=== PATIENT | male | born 1960 | race Caucasian/White ===

== ENCOUNTER 2022-01-22 08:49 | Outpatient (CLI) | payer OTHER, SELFPAY ==
--- OUTSIDE RECORDS SUMMARY | 2022-01-18 09:22 | XMS_ITS | Continuity of Care Document ---
:1960 Author Care Team Providers Name Role Phone SEEN Primary Care Physician Unavailable MD Ann-Marie G Attending Physician Chief Complaint and Reason for Visit Chief Complaint 03/13/19, Left Total Hip, Mue [facility] Allergies, Adverse Reactions, Alerts No known allergies Social History Smoking Status Status Start Date End Date Date of Observat ion Never smoked tobacco December 10 12:28pm (finding) Observation Status Observation Response Date of Response History provided by Patient February 13, 2019 9:41 am Where do you live? Own home/apt February 13, 2019 9:41 am With whom do you live? Spouse February 13, 2019 9 :41am Specify additional service WORKING WITH THERAPY February 13 9:41am needs Additional Data Assigned Sex Male Problems Active Problems Medical Problem Onset Date Status Chronic low back pain Active History of vasectomy Resolved History of total hip arthroplasty March 13, 2019 [facility] ed Medications Medication Status Dose Units Route Directions Qty Days Start End Ins tructions Date Date Glucosamine-C Active 1 CAP PO Daily hondroitin (Joint Pain Formula) 1 Cap CAP Multiple Active 1 EA PO Daily Vitamin (Multi-Vitami n) TAB Acetaminophen Disconti 500-1 MG PO Every 6 Februaryobe (Acetaminophe nued 000 Hours as , r 2nd, n Extra needed 2018 2018 Stren) 500 Mg 1:04pm 11:06a TAB m Acetaminophen Disconti 1 TAB PO Every 4 February /Hydrocodone nued Hours as , , Bitart needed 2018 2018 (Hydrocodone- 9:02am 6:22am Acetaminophen ) 5 Mg/325 Mg TAB Amoxicillin & Disconti 1 TABLET PO Twice Daily July Pot nued For 10 Days , , Clavulanate 2016 2017 (Augmentin) 9:31am 9:15am 875 Mg/125 Mg TAB Amoxicillin/C Disconti 1 TAB PO Twice Daily November e lavulanate nued For 10 Days , , Potassium 2021 2021 (Amoxicillin 11:25am 9:26am & Pot Clavulanate) 875 Mg/125 Mg TAB Aspirin Disconti 325 MG PO Twice A Day 50 25 February Octobe nued , r , 2018 2018 1:04pm 11:06a m Azithromycin Disconti 500 MG PO Daily November nued , , 2021 2021 11:11am 9:26am Azithromycin Disconti 0 MG PO Daily July on e tablet daily x3 days for (Zithromax) nued , , travelle r's diarrhea 250 Mg TAB 2007 2008 10:18am 8:23am Betamethasone Disconti 1 EA EX Twice A Day 45 Decembe N ovemb Use for no /Clotrimazole nued r , er longe r than (Clotrimazole 2010, 2-3 we eks. /Betamethason 5:10pm 2011 e Cream) CRE 9:24am Cefdinir Disconti 300 MG PO Twice A Day September nued , er 2012, 3:38pm 2013 11:07a m Cefdinir Disconti 300 MG PO Twice A Day July nued , , 2012 2012 2:19pm 3:13pm Cefdinir Disconti 300 MG PO Twice A Day July nued , y 2012, 2:18pm 2012 2:19pm Diphtheria/Te Disconti 0.5 ML IM Once July tanus/Acell nued , y Pertussis 2007, (Adacel) 0.5 10:24am 2007 Ml INJ 10:50a m Guaifenesin/C Disconti 1-2 TSP PO Every 4 November odeine nued Hours as , , Phosphate needed 2021 2021 (Guaifenesin- 11:12am 9:26am Codeine) 100 Mg/10 Mg/5 Ml SOLN Guaifenesin/C Disconti 1-2 TSP PO Every 4 July PRN FOR COUGH odeine nued Hours as , 3rd, Phosphate needed 2016 2017 (Guaifenesin- 9:31am 9:15am Codeine) 100 Mg/10 Mg/5 Ml SOLN Hepatitis A Disconti 1 ML IM Once Julyuar Vaccine nued , y Inactivated 2007, (Havrix 10:18am 2007 Adult) 1,440 10:50a Unit INJ m Hepatitis B Disconti 1 ML IM Once January Recomb/Hep A nued , , Inact Vacc 2007 2007 (Twinrix) 1 8:51am 8:56am Ml INJ Hepatitis B Disconti 1 ML IM Once 1 uar Februa Vaccine nued y , ry (Engerix-B 2007, Sdv) 20 1:08pm 2007 Mcg/Ml INJ 10:40a m Hepatitis B Disconti 1 ML IM Once Julyuar Vaccine nued , y (Engerix-B 2007, Sdv) 20 10:24am 2007 Mcg/Ml INJ 11:23a m Hydrocodone-A Disconti 1-2 TAB PO Every 6 January [facility] cetaminophen nued Hours as 18, er ([place]) 5 needed 2017 6th, Mg/325 Mg TAB 12:30pm 2017 9:31am Ibuprofen Disconti 600-8 MG PO Every 6 February nued 00 Hours as , needed 2018 10:25a m Influenza Disconti 0.5 ML IM Once 1 [facility] Virus Vacc nued r 9th, er Triv Types 2010 03, A&B (Fluzone 11:28am 2009 Unit Dose 11:49a ) 0.5 m Ml INJ Influenza Disconti 0.5 ML IM Once 1 [facility] Virus Vaccine nued r 6th, er (Fluzone 2017 6th, Quadrivalent 9:08am 2017 (3 Yrs And 10:02a Older)2018-19 m ) 1 Inj INJ Influenza Disconti 0.5 ML IM Once 1 Novemb Virus Vaccine nued r 20th, er Types 2013, (Fluvirin 11:11am 2013 2013- (4 11:15a Yrs And Up, m Pf-Syringe)) 1 Inj INJ Lorazepam Disconti 0.5-1 MG PO Every 6 January nued Hours as 16, , needed 2017 2018 2:46pm 7:58am Magnesium Disconti 250 MG PO Daily January Oxide nued , (Magnesium) 2018 250 Mg TAB 1:13pm Methylprednis Disconti 1 TAB PO As Directed January y DIRECTED olone (Medrol nued , , ON PAC KAGE Dosepak) 4 Mg 2017 2017 CHANTAL 2:46pm 11:17a m Nabumetone Disconti 750 MG PO Twice A Day 60 October nued , , 2018 2018 9:58am 1:13pm Naproxen Disconti 220 MG PO Twice A Day Februa Sodium nued as needed ry (Aleve) 220 , Mg TAB 2019 8:38am Neomycin/Poly Disconti 3 DROP LEFT Tid X 7 January myxin/Hydroco nued EAR Days , 16, rtisone 2017 2017 (Cortisporin 9:36am 2:15pm Otic Susp) 1 Drop DROP Oxycodone Hcl Disconti 2.5-1 MG PO Every 4-6 Februaryo be minimize. nued 0 Hours as , r 2nd, wean off a nd needed 2018 2018 discontinue 8:24am 11:06a as soon as m possible Oxycodone/Christiano Disconti 1-2 TABLET PO Every 4 January taminophen nued Hours as , , needed 2017 2018 12:24pm 7:58am Prednisone Disconti 20 MG PO Twice A Day 05 February Decemb nued , er 2018 6th, 12:12pm 2017 9:05am Ranitidine Disconti 150 MG PO Twice A Day 60 Februa Hcl nued as needed ry 2019 8:38am Rivaroxaban Disconti 10 MG PO Daily 3 Februaryobe Teo e this medication for 3 days as directed, then aspirin (Xarelto) 10 nued , r 2nd, as dir ected for 25 days Mg TAB 2018 2018 1:04pm 11:06a m Sennosides Disconti 2 TAB PO Twice A Day Februaryob e (Senna) 8.6 nued as needed , r 2nd, Mg TAB 2018 2018 10:25am 11:06a m Sulfamethoxaz Disconti 1 TABLET PO Twice A Day 28 Decembe Novemb ole-Trimethop nued r , er rim (Bactrim 2010 16, Ds (800/160)) 5:02pm 2011 800 Mg/160 Mg 9:24am TAB Tamsulosin Disconti 0.4 MG PO Daily as 23 March Hcl nued needed 2018 8:29am Tamsulosin Disconti 0.4 MG PO Daily December Hcl (Flomax) nued , , 0.4 Mg CAP 2018 2018 8:51am 1:13pm Tizanidine Disconti 4 MG PO Every 8 February Hcl nued Hours as , , needed 2018 2018 9:07am 6:22am Tizanidine Disconti 2-4 MG OR Every 6 January Hcl nued Hours as , , needed 2017 2018 10:09am 8:29am Tizanidine Disconti 2-4 MG OR Every 6 January Hcl nued Hours as , , needed 2017 2017 1:40pm 10:09a m Tramadol Hcl Disconti 50-10 MG PO Every 6 December nued 0 Hours as , , needed 2018 2018 8:53am 9:02am Tramadol Hcl Disconti 50-10 MG PO Every 6 20 February Decemb nued 0 Hours as , er needed 2017 12, 2:46pm 2018 9:31am Typhoid Disconti 1 EA PO Every Other 4 July Vaccine nued Day , , (Vivotif 2007 2008 [place]) CAP 10:18am 8:23am Immunizations Immunization Event Date Not Given Dose Production Engineer Lot Vac cine Reason Number Number Informatio n Statement (VIS) Deta il COVID-19 July 25 Moderna 2020 COVID-19 August 26 Moderna 2020 COVID-19 May 27 Moderna 2020 Hepatitis A July 25 GlaxoSmithKline [id number] Adult 2007 B Hepatitis B July 25 Adult 2007 Hepatitis B February 2 Adult 2007 Hepatitis B February 15, Adult 2007 Influenza June 24 Sanofi Pasteur [id number] 2009 Influenza May 26 Novartis [id number] 2013 Influenza April 26 [id number] 2016 Influenza June 27 SANOFI [id number] 2017 Tetanus/Dipther April 24 ia 2016 Tdap July 25 (adolescent/maryellen 2007 lt) Tdap April 25 (adolescent/maryellen 2016 lt) Medical Equipment Device Date Implanted Device Details PINNACLE GRIPTION March 13, 2019 AQUILES: [id number] Issuing Agency: [facility] Device Id: [id number] Expiration Date: 03-27-31 Lot Number: [id number] PINNACLE ALTRX March 13, 2019 AQUILES: [id number] Issuing Agency: [facility] Device Id: [id number] Expiration Date: 10-27-30 Lot Number: [id number] APEX March 13, 2019 AQUILES: ()[id number] Issuing Agency: [facility] Device Id: [id number] Expiration Date: 03-28-30 Lot Number: [id number] BIOLOX DELTA March 13, 2019 AQUILES: ()[id number] Issuing Agency: [facility] Device Id: [id number] Expiration Date: 10-28-29 Lot Number: [id number] CORAIL March 13, 2019 AQUILES: ()[id number] Issuing Agency: [facility] Device Id: [id number] Expiration Date: 10-02-29 Lot Number: [id number] Procedures Procedure Date Performed Status Lab Add on Test January 07, 2022 completed C-REACTIVE PROTEIN January 01, 2022 completed ASSAY THYROID STIM HORMONE January 01, 2022 completed LIPID PANEL January 01, 2022 completed METABOLIC PANEL TOTAL CA January 01, 2022 completed Relevant Diagnostic Tests and/or Laboratory Data Laboratory Results Test Date/Time Result Interpretation Reference Result Perfo rming Site Range Comment Random January 01 60-115 [facility] Glucose 2021 [address] [facility] 10:20am [facility] [address] Blood Urea January 01 7-30 [facility] Nitrogen 2021 [address] [facility] 10:20am [place] [address] Creatinine January 01, 0.7 0.5-1.5 [facility] 2021 [address] [facility] 10:20am [place] [address] Estimated January 01, Patient [facility] Creatinine 2021 height/weigh [address] [facility] Clearance 10:20am [place] [address] available Sodium Level January 01, 137 135-149 [facility] 2021 [address] [facility] 10:20am [place] [address] Potassium January 01, 4.7 3.6-5.1 [facility] Level 2021 [address] [facility] 10:20am [facility] [address] Chloride January 01, 98 96-114 [facility] Level 2021 [address] [facility] 10:20am [facility] [address] Carbon January 01, 32 20-32 [facility] Dioxide Level 2021 [address] [facility] 10:20am [facility] [address] Calcium Level January 01, 9.6 8.4-10.6 [facility] 2021 [address] [facility] 10:20am [facility] [address] Cholesterol January 01, 171 90-199 [facility] Level 2021 [address] [facility] 10:20am [facility] [address] Triglycerides January 01, 62 40-149 [facility] Level 2021 [address] [facility] 10:20am [facility] [address] LDL January 01, 90 <100 [facility] Cholesterol 2021 [address] [facility] 10:20am [facility] [address] HDL January 01, 69 >=40 [facility] Cholesterol 2021 [address] [facility] 10:20am [facility] [address] Thyroid January 01, 3.290 0.270-4.20 Patients [facility] Stimulating 2021 0 taking a [address] [facility] Hormone (TSH) 10:20am high [place] [facility] [place] [address] (>5mg/day) of Biotin supplement (vitamin B7) will demonstrate a >10% negative bias for TSH testing. C-Reactive January 01, < 0.50 0.5-1.0 [facility] Protein 2021 [address] [facility] 10:20am [place] [address] Prostate January 01, 0.67 0.10-4.00 Patients [facility] Specific 2021 taking a [address] [facility] Antigen 10:20am high dose [facility] [address] Screen (>5mg/day) of Biotin supplement (vitamin B7) will demonstrate a >10% negative bias for this test. Erythrocyte January 01 0-15 [facility] [place] Sedimentation 2021 [address] 10:20am [facility] [address] Vital Signs Vital Reading Result Reference Range Collection Date/ Time Height 74 [in_i] January 01, 2022 9:30am Height 187.96 cm January 01, 2022 9:30am Weight 223 [lb_av] January 01, 2022 9:30am Weight 101.778745 kg January 01, 2022 9:30am BP Systolic 126 mm[Hg] January 01, 2022 9:30am BP Diastolic 76 mm[Hg] January 01, 2022 9:30am Heart Rate 70 /min January 01, 2022 9:30am Respiratory rate 15 /min January 01, 2022 9:30am Body surface area 2.28 m2 January 01 9:30am BMI (Body Mass Index) 28.6 kg/m2 January 01, 2022 9:30am Advance Directives Advance Directive Response Recorded Date/Time Has patient completed a Yes December 10, 2021 1 2:28pm Health Care Directive? Insurance Providers Guarantor Acosta Caballero Address [address] [facility] [address] Contact Info. Home Phone: Payer Policy Id Coverage Subscriber's Subscriber Effective Expira tion Id Name Id Date Date Preferred [id number] Sherrill Caballero July Encounters Encounter Location(s) Arrival/Admit Date Discharge/Depart Date Provider(s) Registered [place] January 01, 2022 [facility] 10:04am Elver Wolf MD Registered Clinics January 01, 2022 [facility] 9:30am Elver Wolf MD Office Visit Cardiology @ January 01, 2022 [facility] 9:30am Elver Wolf MD Clinic Recent Diagnosis Onset Date GONZALEZ (dyspnea on exertion) Cardiomyopathy Functional Status Observation Response Date Recorded Functional Status Independent March 15, 2019 1: 00pm Mental Status Observation Response Date Recorded Cognitive Status Alert March 15, 2019 1: 00pm Oriented March 15, 2019 1: 00pm Assessments Diagnosis Onset Date Resolution Status GONZALEZ (dyspnea on exertion) Cardiomyopathy Plan of Treatment Instructions from visit on: 01/01/22 Please follow the provider's instructions as discussed during your visit. Future Tests Future scheduled test information is unavailable Pending Tests Pending diagnostic test information is unavailable Future Visits Future appointment information is unavailable Referrals to Other Providers Referral information is unavailable Future Procedures Procedure Name Scheduled Date CARD Echo W/ CF Dop CARD Holter Monitor Future Medications Future medication information is unavailable Patient Instructions Acetaminophen (By mouth) Aspirin (By mouth) Laxative, Stool Softeners (By mouth) Oxycodone, Rapid Release (By mouth) Rivaroxaban (By mouth) Total Hip Replacement (DC) Goals Ambulatory Goals Reach or maintain optimal well being.
== END 2022-01-22 08:50 | disposition home or self-care (01) ==
LOC: RAD 08:51
PROVIDERS: PCP Internal Medicine; Visit Provider Internal Medicine Cardiovascular Disease
DX: I42.9 Cardiomyopathy, unspecified (principal); I34.1 Nonrheumatic mitral (valve) prolapse; I34.0 Nonrheumatic mitral (valve) insufficiency; I51.7 Cardiomegaly
CPT/HCPCS: 93306

== ENCOUNTER 2022-06-23 11:10 | Outpatient (CLI) | payer OTHER, SELFPAY ==
[2022-06-23 12:19] LABS: Chloride* 101 mmol/L (96-114); Sodium* 135 mmol/L (135-149)
[2022-06-23 12:20] LABS: Potassium* 4.5 mmol/L (3.6-5.1)
[2022-06-23 12:22] LABS: Creatinine* 0.8 mg/dL (0.5-1.5); Estimated Glomerular Filt Rate 102 ml/min
[2022-06-23 12:23] LABS: Blood Urea Nitrogen* 17 mg/dL (7-30); Calcium* 9.6 mg/dL (8.4-10.6); Carbon Dioxide* 30 mmol/L (20-32); Glucose* 87 mg/dL (60-115)
== END 2022-06-23 11:11 | disposition home or self-care (01) ==
LOC: NFLDREF 11:11
PROVIDERS: PCP Internal Medicine; Visit Provider Family Medicine
DX: E87.6 Hypokalemia (principal)
CPT/HCPCS: 80048

== ENCOUNTER 2023-01-18 08:23 | Outpatient (CLI) | payer OTHER, SELFPAY ==
--- OUTSIDE RECORDS SUMMARY | 2023-01-18 08:50 | XMS_ITS | Continuity of Care Document ---
Author Name Unknown Organization [facility] Address [address] [place] [address] Phone Care Team Providers Care Circus Artist Name Role Phone Misha José Unavailable Unavailable Allergies, Adverse Reactions, Alerts Substance Reaction Status Criticality No Known Allergies Active No Inform ation Medications Medication Instructions Dosage Effective Dates (start - stop) Status Comments meloxicam 15 mg tablet take 1 tablet by oral route every day 15 MG - Active TIZANIDINE HCL (unknown strength) Not Available - Active TRAMADOL HCL ER (unknown strength) Not Available - Active PERCOCET (unknown strength) Not Available - Active Procedures Procedure Date Office/Outpatient Visit,Est, Mod 2018 Office/Outpatient Visit,Est, Mod 2018 Office/Outpatient Visit,New, Mod 2017 Advance Directives Directive Yes / No Effective Date File Name No Information Encounters Encounter Description Practice Location Reason(s) For Visit Diagnoses Date Provider Providers Copied on Encounter [facility], [address], [place], [id number], [place] tel:[phone] No Information Paolo Cabral. [facility], [address], [place], [id number], [place]. tel:[phone] Office/Outpati ent Visit,Est, Mod [facility], [address], [place], [id number], [place] tel:[phone] [facility] Radiculopathy , lumbar region Paolo Cabral. [facility], [address] [place] [address] [address], [place], [place], [id number], . tel:[phone] Referring Provider: Dagoberto Rogers, [facility] [address] [place], [address]. tel:[phone] Office/Outpati ent Visit,Est, Mod [facility], [address], [place], [place], [id number], [place] tel:[phone] [facility] - [facility] Radiculopathy , lumbar region Paolo Cabral. [facility] [place], [address] [place] [address] [address], [place], [place], [id number], [place]. tel:[phone] Referring Provider: Dagoberto Rogers, [facility] [address] [place], [address]. tel:[phone] Office/Outpati ent Visit,New, Mod [facility], [address], [place], [place], [id number], [place] tel:[phone] [facility] - [facility] Rad[facility]opathy , lumbar region Paolo Cabral. [facility] [place], [address] [place] [address], [place], [place], [id number], . tel:[phone] Referring Provider: Dagoberto Rogers, [facility] [address] [place], [address]. tel:[phone] Family History Family Member Type Diagnosis Age At Onset No Information Payers Payer name Insurance type Covered alliance party ID Authorbrissaa lottie(s) Preferred One Admin [facility] CI [id number] Social History Type Description Quantity Date Captured Comments Sex Male Smoking Status No Information Chief Complaint And Reason For Visit No Information Reason For Referral Reason For Referral No Information Plan Of Treatment Date Type Action Status Future Order: Radiology Order Tr ansforaminal Ylkiirn-Bnjiaf-Movrfjiafoexwd (TRANSLUMNONPART), Ordered on: Ordered History Of Present Illness Encounter Date Complaint History Of Prese nt Illness No Information Functional Status Date Functional Assessmen t No Information Instructions Date Instruction Additional Infor mation No Information Assessments Type Assessment Date No Information Patient Care Teams Name Effective Dates (start - stop) Status Members No Information
== END 2023-01-18 08:24 | disposition home or self-care (01) ==
PROVIDERS: PCP Family Medicine; Visit Provider Family Medicine
DX: Z00.00 Encounter for general adult medical examination without abnormal findings (principal); R63.5 Abnormal weight gain; Z12.5 Encounter for screening for malignant neoplasm of prostate; R60.0 Localized edema
CPT/HCPCS: 80048; 84153; 84439; 84443

== ENCOUNTER 2023-03-04 08:52 | Outpatient (CLI) | payer OTHER, SELFPAY ==
--- OUTSIDE RECORDS SUMMARY | 2023-03-04 08:54 | XMS_ITS | Continuity of Care Document ---
Author Name Unknown Organization [facility] Address [address] [place] [address] Phone Care Team Providers Care Glazing Superintendent Name Role Phone Misha José Unavailable Unavailable [...] [facility], [address], [place], [id number], [place] tel:[phone] No Information Paolo Cabral. [facility], [address], [place], [id number], [place]. tel:[phone] Office/Outpati ent Visit,Est, Mod [facility], [address], [place], [id number], [place] tel:[phone] [facility] Radiculopathy , lumbar region Paolo Cabral. [facility], [address] [place] [address] [address], [place], [place], [id number], . tel:[phone] Referring Provider: Dagoberto Rogers, [facility] [address] [place], [address]. tel:[phone] Office/Outpati ent Visit,Est, Mod [facility], [address], [place], [place], [id number], [place] tel:[phone] [facility] - [facility] Rad[facility]opathy , lumbar region Paolo Cabral. [facility] [place], [address] [place] [address] [address], [place], [place], [id number], [place]. tel:[phone] Referring Provider: Dagoberto Rogers, [facility] [address] [place], [address]. tel:[phone] Office/Outpati ent Visit,New, Mod [facility], [address], [place], [place], [id number], [place] tel:[phone] [facility] - [facility] Radiculopathy , lumbar region Paolo Cabral. [facility] [place], [address] [place] [address], [place], [place], [id number], . tel:[phone] Referring Provider: Dagoberto Rogers, [facility] [address] [place], [address]. tel:[phone] Family History Family Member Type Diagnosis Age At Onset No Information Payers Payer name Insurance type Covered alliance party ID Authorbrissaa lottie(s) Preferred One Admin [facility] CI [id number] Social History Type Description Quantity Date Captured Comments Sex Male Smoking Status No Information Chief Complaint And Reason For Visit No Information Reason For Referral Reason For Referral No Information Plan Of Treatment Date Type Action Status Future Order: Radiology Order Tr ansforaminal Yodfgjv-Tiesow-Pthybqozywisak (TRANSLUMNONPART), Ordered on: Ordered History Of Present Illness Encounter Date Complaint History Of Prese nt Illness No Information Functional Status Date Functional Assessmen t No Information Instructions Date Instruction Additional Infor mation No Information Assessments Type Assessment Date No Information Patient Care Teams Name Effective Dates (start - stop) Status Members No Information
== END 2023-03-04 08:53 | disposition home or self-care (01) ==
PROVIDERS: PCP Family Medicine; Visit Provider Internal Medicine Cardiovascular Disease
DX: E03.9 Hypothyroidism, unspecified (principal); R60.0 Localized edema
CPT/HCPCS: 80048; 84443

== ENCOUNTER 2023-08-03 13:39 | Outpatient (CLI) | payer OTHER, SELFPAY ==
--- OUTSIDE RECORDS SUMMARY | 2023-08-03 13:44 | XMS_ITS | Clinical Summary ---
Author Name Unknown Organization [facility] Address [place], [place] [address] Care Team Providers Care Insights Manager Name Role Phone Manjula Parekh MD Primary Care Provider [phone] Allergies No known active allergies Medications Medication Sig Dispensed Refills Start Date End Date Status cetirizine (ZYRTEC) 10 mg tablet Take 1 Tablet (10 mg) by mouth once daily if needed. 0 02/17/2022 Active multivitamin (MVI) tablet Take 1 Tablet by mouth once daily. 0 02/17/2022 Active cholecalciferol (VITAMIN D3) 1,000 unit capsule Take 1 Capsule (1,000 units) by mouth once daily. 0 02/17/2022 Active glucosamine sulfate 500 mg tab Take 1 Tablet (500 mg) by mouth once daily. 0 02/17/2022 Active sildenafiL, pulm.hypertension, (REVATIO) 20 mg tablet Take 40-100 mg by mouth each time if needed (prior to sexual intercourse). 0 04/28/2022 Active aspirin chewable 81 mg chewable tablet Take 1 Tablet (81 mg) by mouth or nasogastric tube once daily. 0 06/16/2022 Active acetaminophen (TYLENOL EXTRA STRGTH) 500 mg tabletIndications: S/P mitral valve repair Take 2 Tablets (1,000 mg) by mouth every 6 hours if needed for Pain. Max acetaminophen dose: 4000mg in 24 hrs. 0 06/15/2022 Active sennosides-docusat e (SENOKOT S) (8.6-50 mg) tabletIndications: S/P mitral valve repair Take 2 Tablets by mouth once daily if needed for Constipation. 10 Tablet 0 06/15/2022 Active metoprolol succinate (Toprol XL) 50 mg sustained-release tabletIndications: HTN (hypertension),NSV T (nonsustained ventricular tachycardia) (HC),Mitral valve insufficiency, unspecified etiology Take 1 Tablet (50 mg) by mouth once daily. 90 Tablet 3 03/02/2023 Active levothyroxine (SYNTHROID) 50 mcg tablet Take 50 mcg by mouth once daily. 0 01/31/2023 Active furosemide (LASIX) 40 mg tabletIndications: S/P mitral valve repair Take 1 Tablet (40 mg) by mouth one time if needed (peripheral edema) for up to 1 dose. 30 Tablet 5 03/04/2023 Active potassium chloride (MICRO-K) 10 mEq Controlled-release capsuleIndications :S/P mitral valve repair Take 2 Capsules (20 mEq) by mouth one time if needed (when also taking lasix) for up to 1 dose. 60 Capsule 5 03/04/2023 Active Active Problems Problem Noted Date Diagnosed Date S/P mitral valve repair 06/10/2022 Overview: Mitral Valve. Medtronic SimPlus Flexible Annuloplasty Band. Medtronic. SIZE: 36mm. REF: [id number]. SN: [id number]. Implanted by Dr. Mehta and Dr. Pereira on 06/10/2022. Nonrheumatic mitral valve regurgitation 06/08/20 Mitral valve insufficiency 03/26/2022 Mitral valve prolapse 03/26/2022 Immunizations Name Administration Dates Next Due COVID-19 vaccine (Moderna 50 mcg/0.5mL) 12YO+ BIVALENT PF, MDV 04/17/2022 Influenza, IIV3 (Age 6-35 mos) 06/13/2014,2009 Influenza, IIV4 06/29/2018,05/09/2017 Pneumococcal Conj 20-valent (Prevnar 20) 022 Tdap 05/09/2017 Zoster (Shingrix-RZV, recombinant) 04/02/2022 Social History Tobacco Use Types Packs/Day Years Used Date Smoking Tobacco: Never Smokeless Tobacco: Never Alcohol Use Standard Drinks/Week Comments Yes 0 (1 standard drink = 0.6 oz pure alcohol) ocassionally 1-2 drinks a few days a week PHQ-2 Answer Date Recorded PHQ-2 TOTAL SCORE 0 08/04/2022 Social Connections Answer Date Recorded Frequency of Communication with Friends and Fami ly Not on file 01/01/2022 Sex and Gender Information Value Date Recorded Sex Assigned at Not on file Gender Identity Not on file Sexual Orientation Not on file Obstetrics History Last Filed Vital Signs Vital Sign Reading Time Taken Comments Blood Pressure 131/74 03/04/2023 8:55 AM CDT Pulse 76 03/04/2023 8:55 AM CDT Temperature 36.7 ??C (98 ??F) 06/15/2022 7:45 AM SOLUTIONS SALES CONSULTANT Respiratory Rate 14 03/04/2023 8:55 AM CDT Oxygen Saturation 98% 06/24/2022 9:00 AM SOLUTIONS SALES CONSULTANT Inhaled Oxygen Concentration - - Weight 105.2 kg (232 lb) 03/04/2023 8:55 AM CDT Height 188 cm (6' 2) 06/24/2022 9:00 AM SOLUTIONS SALES CONSULTANT Body Mass Index 29.79 06/24/2022 9:00 AM SOLUTIONS SALES CONSULTANT Plan of Treatment Upcoming Encounters Date Type Department Care Team (Late st Contact Info) Description 08/03/2023 2:00 PM SOLUTIONS SALES CONSULTANT Orders Only [facility] [address] [place] [address] Health Maintenance Due Date Last Done Comments HIV for age 15-65 1977 Hepatitis C screening for age 18-79 1980 Colonoscopy through age 75 12/16/2007 Lipids for age 45-75 12/16/2007 Zoster (shingles) series for age 50+ (2 of 2) 05/28/2022 04/02/2022 COVID-19 vaccine series ( season) 2023 04/17/2022, 05/29/2021, 09/01/2020, Additional history exists Influenza for age 50-64 03/25/2023 06/29/2018, 05/09 BMI (ht and wt on same day) for age 18+ 03/26/2023 03/26/2022 Depression screening for age 12+ 07/26/2023 07/26/2022, 06/25/2022, 06/23/2022 Tetanus booster 05/09/2027 05/09/2017 Tdap Completed 05/09/2017 Pneumococcal series for age 6-64 Aged Out 05/05/2022 No longer eligible based on patient's age to complete this topic Medical Devices Implanted Type Area Quality Lab Technician Device Identifier Shelf Expiration Date Model / Serial / Lot Band Mitral 34mm Simuplus - [id number] Implanted:Qty: 1 on 06/07/2022 by Melissa Pereira MD at [facility] N/A: Mitral Valve Medtronic Cardiac Surgery 02/25/2025 [id number] / [id number] / [id number] Band Mitral 36mm Simuplus - [id number] Implanted:Qty: 1 on 06/10/2022 by Dejan Mehta MBBS at [facility] N/A: Mitral Valve Medtronic Cardiac Surgery 02/24/2026 [id number] / [id number] / Advance Directives Latest Code Status on File Code Status Date Activated Date Inactivated Comments Full Code 06/08/2022 6:02 AM 06/15/2022 3:40 PM Question Answer Comments Code Status Discussion: Reviewed Preferences Code Status History Code Status Date Activated Date Inactivated Comments Full Code 06/07/2022 11:30 AM 06/08/2022 6:02 AM Question Answer Comments Code Status Discussion: Unable to Assess Preferences, Provider to review later Full Code 03/17/2022 9:04 AM 03/18/2022 2:08 AM Question Answer Comments Code Status Discussion: Reviewed Preferences Care Teams Insights Manager Relationship Specialty Start Date End Date Manjula Parekh MD [address] [place] [id number] PCP - General Internal Medicine 01/08/22
--- OUTSIDE RECORDS SUMMARY | 2023-08-03 13:44 | XMS_ITS | Continuity of Care Document ---
Author Name Unknown Organization [facility] Address [address] [place] [address] Phone Care Team Providers Care Monologist Name Role Phone Misha José Unavailable Unavailable [...] [facility], [address], [place], [id number], [place] tel:[phone] No Information Paolo Cabral. [facility], [address], [place], [id number], [place]. tel:[phone] Office/Outpati ent Visit,Est, Mod [facility], [address], [place], [id number], [place] tel:[phone] [facility] Radicul[facility] , lumbar region Paolo Cabral. [facility], [address] [place] [address] [address], [place], [place], [id number], [place]. tel:[phone] Referring Provider: Dagoberto Rogers, [facility] [address] [place], [address]. tel:[phone] Office/Outpati ent Visit,Est, Mod [facility], [address], [place], [place], [id number], [place] tel:[phone] [facility] - [facility] , lumbar region Paolo Cabral. [facility], [address] [place] [address] [address], [place], [place], [id number], [place]. tel:[phone] Referring Provider: Dagoberto Rogers, [facility] [address] [place], [address]. tel:[phone] Office/Outpati ent Visit,New, Mod [facility], [address], [place], [place], [id number], [place] tel:[phone] [facility] - [facility] , lumbar region Paolo Cabral. [facility], [address] [place] [address], [place], [place], [id number], . tel:[phone] Referring Provider: Dagoberto Rogers, [facility] [address] [place], [address]. tel:[phone] Family History Family Member Type Diagnosis Age At Onset No Information Payers Payer name Insurance type Covered alliance party ID Authoriza tion(s) No Information Social History Type Description Quantity Date Captured Comments Sex Male Smoking Status No Information Chief Complaint And Reason For Visit No Information Reason For Referral Reason For Referral No Information Plan Of Treatment Date Type Action Status Future Order: Radiology Order Tr ansforaminal Qciumnf-Lboqbn-Vtegqelqiixfrp (TRANSLUMNONPART), Ordered on: Ordered History Of Present Illness Encounter Date Complaint History Of Prese nt Illness No Information Functional Status Date Functional Assessmen t No Information Instructions Date Instruction Additional Infor mation No Information Assessments Type Assessment Date No Information Patient Care Teams Name Effective Dates (start - stop) Status Members No Information
== END 2023-08-03 13:40 | disposition home or self-care (01) ==
LOC: RAD 13:41
PROVIDERS: PCP Family Medicine; Visit Provider Internal Medicine Cardiovascular Disease
DX: Z95.2 Presence of prosthetic heart valve (principal); I34.0 Nonrheumatic mitral (valve) insufficiency; Z98.890 Other specified postprocedural states
CPT/HCPCS: 93306

== ENCOUNTER 2024-03-29 07:48 | Outpatient (CLI) | payer OTHER, SELFPAY ==
--- OUTSIDE RECORDS SUMMARY | 2024-03-29 07:52 | XMS_ITS | Clinical Summary ---
Author Organization [facility] Address [place], [place] [address] Care Team Providers Care K 9 Police Officer Name Role Phone Manjula Parekh MD Primary Care Provider [phone] Allergies No known active allergies Medications Medication Sig Dispensed Refills Start Date End Date Status cetirizine (ZYRTEC) 10 mg tablet Take 1 Tablet (10 mg) by mouth once daily if needed. 0 02/17/2022 Active multivitamin (MVI) tablet Take 1 Tablet by mouth once daily. 0 02/17/2022 Active cholecalciferol (VITAMIN D3) 1,000 unit capsule Take 1 Capsule (1,000 units) by mouth once daily. 02/17/2022 Active glucosamine sulfate 500 mg tab Take 1 Tablet (500 mg) by mouth once daily. 0 02/17/2022 Active sildenafiL, pulm.hypertensio n, (REVATIO) 20 mg tablet Take 40-100 mg by mouth each time if needed (prior to sexual intercourse). 04/28/2022 Active aspirin chewable 81 mg chewable tablet Take 1 Tablet (81 mg) by mouth or nasogastric tube once daily. 0 06/16/2022 Active acetaminophen (TYLENOL EXTRA STRGTH) 500 mg tabletIndication s:S/P mitral valve repair Take 2 Tablets (1,000 mg) by mouth every 6 hours if needed for Pain. Max acetaminophen dose: 4000mg in 24 hrs. 0 06/15/2022 Active sennosides-docus ate (SENOKOT S) (8.6-50 mg) tabletIndication s:S/P mitral valve repair Take 2 Tablets by mouth once daily if needed for Constipation. 10 Tablet 06/15/2022 Active metoprolol succinate (Toprol XL) 50 mg sustained-releas e tabletIndication s:HTN (hypertension),N SVT (nonsustained ventricular tachycardia) (HC),Mitral valve insufficiency, unspecified etiology Take 1 Tablet (50 mg) by mouth once daily. 90 Tablet 3 03/02/2023 Active levothyroxine (SYNTHROID) 50 mcg tablet Take 50 mcg by mouth once daily. 01/31/2023 Active potassium chloride (MICRO-K) 10 mEq Controlled-relea se capsuleIndicatio ns:S/P mitral valve repair Take 2 Capsules (20 mEq) by mouth one time if needed (when also taking lasix) for up to 1 dose. 60 Capsule 5 03/04/2023 Active furosemide (LASIX) 40 mg tabletIndication s:S/P mitral valve repair Take 1 Tablet (40 mg) by mouth one time if needed (peripheral edema). 30 Tablet 1 03/06/2024 Active furosemide (LASIX) 40 mg tabletIndication s:S/P mitral valve repair Take 1 Tablet (40 mg) by mouth one time if needed (peripheral edema) for up to 1 dose. 30 Tablet 5 03/04/2023 4 Discontinue d(Reorder (E-cancel not sent)) Active Problems Problem Noted Date Diagnosed Date S/P mitral valve repair 06/10/2022 Overview: Mitral Valve. Medtronic SimPlus Flexible Annuloplasty Band. Medtronic. SIZE: 36mm. REF: [id number]. SN: [id number]. Implanted by Dr. Mehta and Dr. Pereira on 06/10/2022. Nonrheumatic mitral valve regurgitation 06/08/20 Mitral valve insufficiency 03/26/2022 Mitral valve prolapse 03/26/2022 Encounters Date Type Department Care Team Description 03/06/[address] Ambrose [address] [place] [id number] Julius Guevara MD Refill Request from Last 3 Months Immunizations Name Administration Dates Next Due COVID-19 vaccine (Moderna 50 mcg/0.5mL) 12YO+ BIVALENT SAIMA ALMANZA 04/17/2022 Influenza, IIV3 (Age 6-35 mos) 06/13/2014,2009 [...] 36.7 ??C (98 ??F) 06/15/2022 7:45 AM NAVY DIVER Respiratory Rate 14 03/04/2023 8:55 AM CDT Oxygen Saturation 98% 06/24/2022 9:00 AM NAVY DIVER Inhaled Oxygen Concentration - - Weight 105.2 kg (232 lb) 03/04/2023 8:55 AM CDT Height 188 cm (6' 2) 06/24/2022 9:00 AM NAVY DIVER Body Mass Index 29.79 06/24/2022 9:00 AM NAVY DIVER Plan of Treatment Health Maintenance Due Date Last Done Comments HIV for age 15-65 1977 Hepatitis C screening for age 18-79 1980 Colonoscopy through age 75 12/16/2007 Lipids for age 45-75 12/16/2007 Zoster (shingles) series for age 50+ (2 of 2) 05/28/2022 04/02/2022 BMI (ht and wt on same day) for age 18+ 03/26/2023 03/26/2022 Depression screening for age 12+ 07/26/2023 07/26/2022, 06/25/2022, 06/23/2022 COVID-19 vaccine series ( season) 2024 04/17/2022, 05/29/2021, 09/01/2020, Additional history exists Influenza for age 50-64 03/25/2024 06/29/2018, 05/09 Tetanus booster 05/09/2027 05/09/2017 Tdap Completed 05/09/2017 Pneumococcal series for age 6-64 Aged Out 05/05/2022 No longer eligible based on patient's age to complete this topic Medical Devices Implanted Type Area Claim Professional Device Identifier Shelf Expiration Date Model / Serial / Lot Band Mitral 34mm Simuplus - [id number] Implanted:Qty: 1 on 06/07/2022 by Melissa Pereira MD at [facility] N/A: Mitral Valve Medtronic Cardiac Surgery 02/25/2025 [id number] / [id number] / [id number] Band Mitral 36mm Simuplus - [id number] Implanted:Qty: 1 on 06/10/2022 by Dejan Mehta MBBS at [facility] N/A: Mitral Valve Medtronic Cardiac Surgery 02/24/2026 [id number] / [id number] / Advance Directives * Full Code (Latest Code Status on File) Date Activated Date Inactivated Comments 06/08/2022 6:02 AM 06/15/2022 3:40 PM Question Answer Comments Code Status Discussion: Reviewed Preferences * Full Code Date Activated Date Inactivated Comments 06/07/2022 11:30 AM 06/08/2022 6:02 AM Question Answer Comments Code Status Discussion: Unable to Assess Preferences, Provider to review later * Full Code Date Activated Date Inactivated Comments 03/17/2022 9:04 AM 03/18/2022 2:08 AM Question Answer Comments Code Status Discussion: Reviewed Preferences Care Teams K 9 Police Officer Relationship Specialty Start Date End Date Manjula Parekh MD [address] [place] [address] PCP - General Internal Medicine 01/08/22
--- OUTSIDE RECORDS SUMMARY | 2024-03-29 07:52 | XMS_ITS | Continuity of Care Document ---
Author Organization [facility] Address [address] [place] [address] Phone Care Team Providers Care Director Consumer Name Role Phone Misha José Unavailable Unavailable [...] [facility], [address], [place], [id number], [place] tel:[phone] No Information Paolo Cabral. [facility], [address], [place], [id number], [place]. tel:[phone] Office/Outpat ient Visit,Est, [facility], [address], [place], [id number], [place] tel:[phone] [facility] , lumbar region Paolo Cabral. [facility], [address] [place] [address] [address], [place], [place], [id number], [place]. tel:[phone] Referring Provider: Dagoberto Rogers, [address], [facility]. tel:[phone] Office/Outpat ient Visit,Est, Mod [facility], [address], [facility] [place], [place], [id number], [place] tel:[phone] [facility] - [facility] Rad[facility] , lumbar region Paolo Cabral. [facility], [address] [place] [address], [place], [place], [id number], [place]. tel:[phone] Referring Provider: Dagoberto Rogers, [address], [facility]. tel:[phone] Office/Outpat ient Visit,New, [facility], [address], [facility] [place], [place], [id number], [place] tel:[phone] [facility] - [facility] Rad[facility] , lumbar region Paolo Cabral. [facility], [address] [place] [address], [place], [place], [id number], [place]. tel:[phone] Referring Provider: Dagoberto Rogers, [address], [facility]. tel:[phone] Family History Family Member Type Diagnosis Age At Onset No Information Payers Payer name Insurance type Covered constitution party ID Authoriza tion(s) No Information Social History Type Description Quantity Date Captured Comments Sex Male Smoking Status No Information Chief Complaint And Reason For Visit No Information Reason For Referral Reason For Referral No Information Plan Of Treatment Date Type Action Status Future Order: Radiology Order Tr ansforaminal Mivnsbd-Prthfj-Dbsfqehqxltzxh (TRANSLUMNONPART), Ordered on: Ordered History Of Present Illness Encounter Date Complaint History Of Prese nt Illness No Information Functional Status Date Functional Assessmen t No Information Instructions Date Instruction Additional Infor mation No Information Assessments Type Assessment Date No Information Patient Care Teams Name Effective Dates (start - stop) Status Members No Information
== END 2024-03-29 07:49 | disposition home or self-care (01) ==
PROVIDERS: PCP Family Medicine; Visit Provider Family Medicine
DX: R60.0 Localized edema (principal); E03.9 Hypothyroidism, unspecified; Z12.5 Encounter for screening for malignant neoplasm of prostate; Z13.220 Encounter for screening for lipoid disorders
CPT/HCPCS: 80053; 80061; 84443; G0103

== ENCOUNTER 2024-11-02 08:51 | Outpatient (CLI) | payer OTHER, SELFPAY | END 2024-11-02 08:52 | disposition home or self-care (01) | LOC: RAD 08:54 | PROVIDERS: PCP Family Medicine; Visit Provider Internal Medicine Cardiovascular Disease | DX: Z98.890 Other specified postprocedural states (principal); I51.7 Cardiomegaly; I34.0 Nonrheumatic mitral (valve) insufficiency; I07.1 Rheumatic tricuspid insufficiency | CPT/HCPCS: 93306 ==

== ENCOUNTER 2024-12-04 08:38 | Outpatient (CLI) | payer OTHER, SELFPAY ==
--- NOTE | 2024-12-11 12:24 | W.PM.SLEEP ---
Sleep Study Details Details Interpreting Provider: Eran Date of Sleep Study: 12/04/24 Sleep Study Details: STUDY TYPE:? Home unattended ? BMI:? 29.5 ORDERING PROVIDER:? Eran INDICATION:? Concerns about sleep apnea ? SLEEP SUMMARY:? 4 in 55 minutes monitor RESPIRATORY SUMMARY:? AHI 26.5 Low oxygen 83 4.4% of study oxygen less than 90% Snoring 56% PERIODIC LIMB MOVEMENTS OF SLEEP:? Not recorded CARDIAC:? Range 56-89, mean 73.5 beats per minute IMPRESSION:? Moderate obstructive sleep apnea with significant desaturation RECOMMENDATION: Treatment options include CPAP or dental appliance.
== END 2024-12-04 08:39 | disposition home or self-care (01) ==
LOC: SLEEP 08:39
PROVIDERS: PCP Family Medicine; Visit Provider Otolaryngology
DX: G47.33 Obstructive sleep apnea (adult) (pediatric) (principal)
CPT/HCPCS: 95806

== ENCOUNTER 2025-02-13 09:05 | Outpatient (CLI) | payer OTHER, SELFPAY ==
--- NOTE | 2025-02-13 09:15 | MR_ITS ---
EXAM: MRI of the RIGHT HIP, without contrast CLINICAL HISTORY: Right hip pain COMPARISONS: Radiographs dated 11/07/2024 TECHNICAL: MR sequences of the right hip: Axials: PD FS Axial oblique: PD Coronals: PD, T2 Coronal pelvis: T1 and STIR Sagittals: PD and T2 CONTRAST: None FINDINGS: Pelvis osseous structures: Sacrum: No fracture or destructive osseous lesion is seen of the imaged portions of the sacrum. Sacroiliac joints: No convincing evidence of sacroiliitis of the imaged portions of the sacroiliac joints. Pubic rami: Unremarkable. Symphysis pubis: There is no evidence of acute osteitis pubis. Lumbar spine: Multilevel degenerative disc disease is noted of the lower lumbar spine which is incompletely evaluated on this examination. This could be further evaluated with dedicated MRI, if clinically indicated. Large [id number] images demonstrate left total hip arthroplasty with surrounding susceptibility artifact. Labrum: Heterogeneous signal is noted throughout the anterosuperior and posterior superior quadrant of the labrum. Findings are most consistent with degenerative type tearing of the labrum. The labrum is suboptimally evaluated on a nonarthrographic examination. Hip joint: Physiologic amount of joint fluid. Diffuse articular cartilage thinning is noted throughout the right hip joint, compatible with grade I to II chondromalacia. The articular cartilage is suboptimally evaluated on a nonarthrographic examination. Proximal femur: Patchy bone marrow edema is noted throughout the right femoral head and extending into the right femoral neck. Within the area of edema, there is a curvilinear area of decreased signal as well as cortical step-off noted along the articular surface (coronal image 13, large [id number] coronal T1 image 16). Differential diagnosis would include fracture extending to the articular surface with mild impaction of the articular surface versus avascular necrosis with early articular surface collapse. Acetabulum: Mild bone marrow edema is noted along the margin of the acetabulum. No subcortical cysts. Ligamentum teres: Unremarkable. Myotendinous structures: Gluteus abductors: Heterogeneously increased signal is noted along the distal gluteus minimus, compatible with moderate tendinosis. No evidence of a discrete tear. Gluteus medius is intact and is unremarkable. Rectus abdominis-adductor longus aponeurosis, adductors, and rectus abdominis: Unremarkable. Hamstrings: Mild heterogeneity is noted of the right hamstrings, compatible with mild tendinosis. No evidence of a discrete tear. Flexors: The iliopsoas and rectus femoris tendons are intact. Quadratus femoris muscle: Unremarkable. Piriformis muscle: Unremarkable. Gluteal aponeurotic fascia and IT band: Unremarkable. Pelvic soft tissues: Unremarkable. IMPRESSION: 1. Patchy bone marrow edema throughout the right femoral head and extending into the right femoral neck. Within the area of edema, there is a curvilinear area of decreased signal and cortical step-off noted along the medial articular surface of the femoral head. Differential diagnosis would include fracture extending to the articular surface with mild impaction of the articular surface versus a focus of avascular necrosis with early articular surface collapse. 2. Mild to moderate right hip osteoarthrosis with diffuse articular cartilage thinning throughout the right hip joint as well as degenerative type tearing of the anterosuperior and posterior superior labrum. 3. Moderate tendinosis of the right gluteus minimus without evidence of tear. 4. Mild tendinosis of the right hamstrings without evidence of tear. 5. Multilevel degenerative disc disease is noted of the lower lumbar spine which is incompletely evaluated on this examination. This could be further evaluated with dedicated MRI, if clinically indicated. AW Electronically signed on 02/14/2025 9:45:[address] PAMELA ORTIZ M.D.
== END 2025-02-13 09:06 | disposition home or self-care (01) ==
LOC: MRI 09:05
PROVIDERS: PCP Family Medicine; Visit Provider Orthopaedic Surgery
DX: M25.551 Pain in right hip (principal); M51.369 Other intervertebral disc degeneration, lumbar region without mention of lumbar back pain or lower extremity pain; M16.11 Unilateral primary osteoarthritis, right hip; S43.431A Superior glenoid labrum lesion of right shoulder, initial encounter; M24.10 Other articular cartilage disorders, unspecified site
CPT/HCPCS: 73721

== ENCOUNTER 2025-03-21 08:20 | Outpatient (CLI) | payer OTHER, SELFPAY | END 2025-03-21 08:21 | disposition home or self-care (01) | LOC: NFLDREF 03-23 23:11 | PROVIDERS: PCP Family Medicine; Referring Provider Family Medicine; Visit Provider Family Medicine | DX: E03.9 Hypothyroidism, unspecified (principal); Z12.5 Encounter for screening for malignant neoplasm of prostate; Z13.6 Encounter for screening for cardiovascular disorders | CPT/HCPCS: 80053; 80061; 84443; G0103 ==

== ENCOUNTER 2025-04-02 08:11 | Day surgery (SDC) | payer OTHER, SELFPAY ==
[2025-04-02] VITALS (25 sets, daily range): BP systolic 120–155; BP diastolic 68–87; PULSE 52–77; RESP 12–20; TEMP 35.6–36.8; O2SAT 93–100; BMI 30.2
[2025-04-02] MEDS: SODIUM CHLORIDE 0.9 % (FLUSH) 10 ML SYRINGE IVF (09:10)
[2025-04-02] MEDS: LACTATED RINGERS 1000 ML 1,000 ML 100 ML IV ×2 (09:10→11:43)
[2025-04-02] MEDS: ACETAMINOPHEN 500 MG TABLET 1000 MG PO ×3 (09:20→22:14)
[2025-04-02] MEDS: OXYCODONE (CR) 10 MG TAB.ER.12H PO (09:21)
[2025-04-02] MEDS: CELECOXIB 200 MG CAPSULE PO (09:21)
[2025-04-02] MEDS: MIDAZOLAM HCL 1 MG/ML inj IVP (09:27)
--- NOTE | 2025-04-02 09:34 | SUR.PREOP ---
TIME?OUT:?924, right hip PT/RN/MDA?VERIFICATION?OF?SURGICAL?SITE,?PROCEDURE,?AND?CONSENT OBTAINED?PRIOR?TO?INVASIVE?PROCEDURE.
--- NOTE | 2025-04-02 10:02 | W.PM.NB ---
Nerve Block Nerve Block Time Seen by Provider: : Date Seen: 04/02/25 Side: right
--- NOTE | 2025-04-02 10:02 | W.PM.NB ---
Nerve Block Nerve Block Time Seen by Provider: : Date Seen: 04/02/25 Type of block requested by surgeon for post-operative analgesia: BARRY/LFCN Side: right Time out performed: Yes Verification of patient name: Yes Verification of date of : Yes Site marking: site marked Name of person performing procedure: Des Continuous monitoring Was continuous monitoring of O2 sat, B/P, monitoring tech, recorded every 15 minutes?: Yes Procedure Checklist: sterile prep, needles and gloves Ultrasound guided. Images saved: Yes Medications given in 5ml increments after negative aspiration: Ropivicaine %: 0.5 mL: 30 Needle gauge: 20 Precedex (mcg): 25 Patient tolerated procedure well: Yes Additional comments: Needle noted below psoas tendon needle noted adjacent to LFCN Block Charges Block Charge (with Pro Fee): Other Periph Nerve Block Use of Ultrasound Machine for Block: Yes- US Guidance/pain block
--- NOTE | 2025-04-02 10:03 | P.ANES_ITS ---
Anesthesia Charges Start Date/Time Anesthesia Start Date: 04/02/25 Anesthesia Start Time: 11:01 Stop Date/Time Anesthesia Stop Date: 04/02/25 Anesthesia Stop Time: 13:33 Coding CPT Codes CPT Codes: ANESTH HIP ARTHROPLASTY - 68782 ([id number]) P3 - PATIENT W/SEVERE SYS DISEASE, QK - ASSEMBLY HAND 2-4 CNCRNT ANES PROC, QX - SOCCER REFEREE SVC W/ MD MED DIRECTION
--- NOTE | 2025-04-02 10:03 | W.ANESCHARGE ---
Anesthesia Charges Start Date/Time Anesthesia Start Date: 04/02/25 Anesthesia Start Time: 11:01 Stop Date/Time Anesthesia Stop Date: 04/02/25 Anesthesia Stop Time: 13:33 Coding CPT Codes CPT Codes: ANESTH HIP ARTHROPLASTY - 84782 ([id number]) P3 - PATIENT W/SEVERE SYS DISEASE, QK - MESH WORKER 2-4 CNCRNT ANES PROC, QX - BIRD SITTER SVC W/ MD MED DIRECTION
--- NOTE | 2025-04-02 10:45 | CRLHL7_ITS ---
For Patients: As a result of the Cures Act, medical imaging exams and procedure reports are released immediately into your electronic medical record. You may view this report before your referring provider. If you have questions, please contact your health care provider. Indication: Hip replacement surgery Technique: AP hip fluoroscopic images. Fluoroscopy time 83.0 seconds. Findings/Impression: Hardware from a right total hip arthroplasty is in satisfactory position. Dictated by Julius Craig MD @ 04/02/2025 4:03:57 PM (Electronically Signed)
[2025-04-02] MEDS: TRANEXAMIC ACID 100 MG/ML INJ 1000 MG IV (11:12)
--- NOTE | 2025-04-02 12:46 | CRLHL7_ITS ---
For Patients: As a result of the Century Cures Act, medical imaging exams and procedure reports are released immediately into your electronic medical record. You may view this report before your referring provider. If you have questions, please contact your health care provider. Indication: Postop Technique: AP hip centered pelvis and lateral view right hip Findings/Impression: Hardware from a right total hip arthroplasty is in satisfactory position. Bone alignment is normal. No sign of acute fracture. Postop changes are within normal limits. Dictated by Julius Craig MD @ 04/02/2025 4:09:11 PM (Electronically Signed)
--- NOTE | 2025-04-02 12:49 | P.ORPRC_ITS ---
Procedure Note Date of procedure: 04/02/25 Procedure: PREOPERATIVE DIAGNOSIS: Right hip osteoarthritis POSTOPERATIVE DIAGNOSIS: Right hip osteoarthritis NAME OF OPERATION: Right total hip arthroplasty SURGEON: Daniel Herrera MD CNC OPERATOR: Geraldine Amador PA-C, DON Darden IMPLANTS: 1. J[employer]J [place] # 54 sector ingrowth cup 2. 36 x 54 +4 neutral polyethylene 3. Actis # 9 standard collared ingrowth stem 4. 36 -2 ceramic femoral head ANESTHESIA: General ESTIMATED BLOOD LOSS: 570 cc COMPLICATIONS: None SPECIMENS: None DRAINS: None PREOPERATIVE ANTIBIOTICS: Ancef 2 g INDICATIONS: The patient is a 64-year-old with a history of severe, unrelenting right hip pain secondary to right hip osteonecrosis. Despite appropriate nonoperative management, including activity modification, use of an assist device, anti-inflammatories, sxzp-jzv-rmkioam pain medication, physical therapy and injections, they continue to have pain and disability. Operative intervention was offered. The risks, benefits and expected outcomes were discussed in detail. These included but were not limited to: Infection, bleeding, injury to blood vessel or nerve, venous thromboembolism. All questions were answered to their satisfaction. Use of an sales assistant institutional sales was necessary throughout the case for patient positioning and safety, soft tissue retraction and closure. PROCEDURE: The patient was placed supine on the [place] table. General Anesthesia was administered. The sales assistant institutional sales made sure the patient was properly positioned. The right hip was prepped and draped in the usual sterile fashion. The image intensifier was brought in for a perfect AP pelvis and a perfect double tear drop AP view of each hip which were used for intraoperative templating with our fluoroscopic guide. A longitudinal incision was made 3 cm distal and 3 cm lateral to the anterior, superior iliac spine. The sales assistant institutional sales retracted the soft tissues to protect them. Subcutaneous dissection was taken with electrocautery to the superficial fascia. The fascia was divided in line with the incision. Blunt dissection was carried medially to the tensor fascia maninder and sartorius interval. Deep dissection was carried with electrocautery. The circumflex vessels were cauterized and divided. The capsule was exposed and then divided in a T- fashion, tagged with #1 FiberWire sutures. Retractors were placed in the joint, held by the sales assistant institutional sales. The corkscrew was placed in the femoral head. The neck cut was made in the subcapital region. We made a second neck cut more distal. The napkin ring of bone was removed. The femoral head was removed intact. Most of the articular cartilage over the femoral head was non adherent to the subchondral bone, consistent with his history of osteonecrosis. Acetabular retractors were placed, held by the sales assistant institutional sales. The labrum was sharply debrided. The capsule was released. The 43 mm reamer was used to the true medial wall. We then enlarged in 2 mm increments using the image intensifier for our reamer placement. We impacted the cup which had excellent purchase. We placed the polyethylene. Attention was then turned to the proximal femur. The limb was placed in 140 degrees of external rotation, maximum extension and adduction. The capsule was released to allow us to deliver the femur into the wound and complete the femoral side. Retractors were held by the sales assistant institutional sales throughout the femoral preparation. The boxing promoter and canal finder were used. Broaches were used to a stable size. The calcar reamer was used. Trial components were placed. The hip was reduced and was found to be stable with appropriate soft tissue tension. Length and offset had been nicely restored using the image intensifier and our fluoroscopic guide. Trial components were removed. The stem was impacted. We placed the femoral head. Again, the hip was reduced and was found to be stable with appropriate soft tissue tension. Length and offset had been nicely restored. The sales assistant institutional sales did a three minute dilute Betadine solution soak. The sales assistant institutional sales irrigated the wound with 3 liters of normal saline via pulse lavage. The sales assistant institutional sales repaired the anterior capsule with a #1 Vicryl and our previously placed Ethibond sutures. The sales assistant institutional sales closed the fascia over the tensor fascia maninder with a #1 PDO Stratafix, subcutaneous tissues with 2-0 Vicryl, skin with a running 3-0 Stratafix and glue. A dry dressing was applied by the sales assistant institutional sales. Sponge and needle counts were correct x 2. The patient tolerated the procedure well; there were no apparent complications. They were awakened and extubated in the operating room, sent to the Post-Anesthesia Care Unit in satisfactory condition. PLAN: 1. The patient will be mobilized with physical therapy, weight-bearing as tolerates 2. Xarelto x 5 days then aspirin x 30 days will be used for DVT prophylaxis 3. The patient will be discharged once medically appropriate
--- NOTE | 2025-04-02 13:39 | P.ANES_ITS ---
Anesthesia Charges Start Date/Time Anesthesia Start Date: 04/02/25 Anesthesia Start Time: 11:01 Stop Date/Time Anesthesia Stop Date: 04/02/25 Anesthesia Stop Time: 13:33 Coding CPT Codes CPT Codes: ANESTH HIP JOINT SURGERY - 91151 ([id number]) P3 - PATIENT W/SEVERE SYS DISEASE, QK - PARLIAMENTARY COUNSEL 2-4 CNCRNT ANES PROC, QX - SOLVENT STATION ATTENDANT SVC W/ MD MED DIRECTION
--- NOTE | 2025-04-02 13:39 | W.ANESCHARGE ---
Anesthesia Charges Start Date/Time Anesthesia Start Date: 04/02/25 Anesthesia Start Time: 11:01 Stop Date/Time Anesthesia Stop Date: 04/02/25 Anesthesia Stop Time: 13:33 Coding CPT Codes CPT Codes: ANESTH HIP JOINT SURGERY - 98557 ([id number]) P3 - PATIENT W/SEVERE SYS DISEASE, QK - MANAGER INVESTMENT 2-4 CNCRNT ANES PROC, QX - CUFFER SVC W/ MD MED DIRECTION
[2025-04-02] MEDS: LACTATED RINGERS 1000 ML 1,000 ML 75 ML IV (15:30)
--- NOTE | 2025-04-02 17:13 | PM.IMCN1 ---
Date of Consult Consult date: 04/02/25 Requesting Physician: Orthopedics Primary Care Provider: Gerardo Eng MD Consult Narrative Reason for consult: Medical management of comorbidities Narrative: Acosta Brownlee is a 64 year old male who presented to the hospital today for an elective right ROYER with Dr. Herrera of Orthopedic surgery. There were no surgical or anesthetic complications noted during procedure. Patient's H&P reviewed, PCP is Dr. Eng at [facility]. Past medical history significant for: essential HTN, hypothyroidism, osteoarthritis. History of blood clots: No Postoperative plan: Home with Review of Systems Status of ROS: Reports: 10 or more systems reviewed and unremarkable except as noted in History and below [facility] Medical History (Updated 04/02/25 @ 17:17 by Kiera Simpson MD) Chronic low back pain ?M54.50 - Low back pain, unspecified (ICD-10) ?G89.29 - Other chronic pain (ICD-10) Erectile dysfunction ?N52.9 - Male erectile dysfunction, unspecified (ICD-10) Greater trochanteric bursitis of left hip ?M70.62 - Trochanteric bursitis, left hip (ICD-10) Need for SBE (subacute bacterial endocarditis) prophylaxis ?Z29.89 - Encounter for other specified prophylactic measures (ICD-10) Cough in adult ?R05.9 - Cough, unspecified (ICD-10) Essential hypertension ?I10 - Essential (primary) hypertension (ICD-10) Acute bronchitis ?J20.9 - Acute bronchitis, unspecified (ICD-10) Sinusitis ?J32.9 - Chronic sinusitis, unspecified (ICD-10) Greater trochanteric bursitis of right hip ?M70.61 - Trochanteric bursitis, right hip (ICD-10) Hypothyroidism ?E03.9 - Hypothyroidism, unspecified (ICD-10) Surgical History (Updated 04/02/25 @ 17:16 by Kiera Simpson MD) History of total right hip replacement (04/02/25) ?Z96.641 - Presence of right artificial hip joint (ICD-10) History of mitral valve repair ?Z98.890 - Other specified postprocedural states (ICD-10) History of vasectomy ?Z98.52 - Vasectomy status (ICD-10) History of total hip replacement (03/13/19) ?Z96.649 - Presence of unspecified artificial hip joint (ICD-10) Social History (Reviewed 02/18/25 @ 13:53 by Loni Kennedy ~ [facility]) What is your current living situation?: I presently have a place to live Problems where you live: no known problems In the past 12 months, utilities in danger of being shut off: no In past 12 months, lack of transportation kept you from medical appts, meetings, work, or getting things needed for daily living: no In the past 12 mos, have been you worried that your food would run out before you had money to buy more?: never true In the past 12 mos, the food you bought just didn't last and you didn't have money to buy more?: never true Smoking Status: Never smoker Do you use any of these nicotine containing products: None Second hand tobacco smoke exposure: No Non-prescribed substance use: denies use How often does anyone, including family, friends and others, physically hurt you: never How often does anyone, including family, friends and others, insult or talk down to you: never How often does anyone, including family, friends and others, threaten you with harm: never How often does anyone, including family, friends and others, scream or curse at you: never Meds Home Medications and Allergies Home Medications ?Medication ?Instructions ?Recorded ?Confirmed ?Type aspirin 81 mg tablet,delayed 81 mg PO QDAY 06/23/22 04/02/25 History release (Adult Aspirin Regimen) Held on 04/02/25. Instructions: Resume on 05/03/25. multivitamin (Multiple Vitamins 1 tab PO QDAY 06/23/22 03/20/25 History tablet) cholecalciferol (vitamin D3) 50 50 mcg PO QDAY 03/04/23 04/02/25 History mcg (2,000 unit) capsule glucosamine HCl 500 mg tablet 500 mg PO QDAY 03/04/23 03/20/25 History sildenafil (pulm.hypertension) 20 40 - 100 mg (2 - 5 x 20 mg) PO 03/07/24 03/20/25 Rx mg tablet QDAY PRN sexual activity #30 tabs furosemide 40 mg tablet 40 mg PO QDAY PRN edema #30 tabs 03/29/24 04/02/25 Rx levothyroxine 50 mcg tablet 50 mcg PO QDAY #90 tabs 03/29/24 04/02/25 Rx (Synthroid) metoprolol succinate 50 mg 50 mg PO QDAY #90 tabs 03/29/24 04/02/25 Rx tablet,extended release 24 hr potassium chloride 20 mEq 20 meq PO QDAY PRN edema #30 tabs 03/29/24 04/02/25 Rx tablet,extended release(part/cryst) tizanidine 4 mg tablet 4 mg PO BID PRN muscle spasticity 03/29/24 04/02/25 Rx #50 tabs amoxicillin 500 mg capsule 2,000 mg (4 x 500 mg) PO ONCE #12 07/12/24 03/20/25 Rx caps tamsulosin 0.4 mg capsule 0.8 mg PO DAILY 03/19/25 04/02/25 History acetaminophen 500 mg capsule 500 - 1,000 mg (1 - 2 x 500 mg) PO 04/02/25 Rx Q6H PRN pain #100 caps aspirin 81 mg chewable tablet 81 mg PO BID for DVT prophylaxis 04/02/25 Rx (Aspirin Childrens) 30 days #60 tabs oxycodone 5 mg tablet 2.5 - 5 mg (0.5 - 1 x 5 mg) PO 04/02/25 Rx Q4-6H PRN Pain #42 tabs rivaroxaban 10 mg tablet (Xarelto) 10 mg PO DAILY DVT prophylaxis 4 04/02/25 Rx days #4 tabs sennosides 8.6 mg tablet (Senna 17.2 mg (2 x 8.6 mg) PO BID PRN 04/02/25 Rx Lax) constipation #100 tabs Allergies Allergy/AdvReac Type Severity Reaction Status Date / Time No Known Allergies Allergy Verified 03/20/25 08:11 Exam Narrative: Exam Narrative: GEN: Alert and oriented, nontoxic HEENT: EOMIs bilaterally, no scleral icterus CV: RRR, No concerning murmurs R: LCTA bilaterally without concerning wheezing Ext: wwp, no concerning edema Skin: No concerning skin lesions or rashes on exposed skin Neuro: Nonfocal Psych: Appropriate Const: Vital Signs, click to edit/add: Vital Signs - 24 hr 04/02/25 09:19 04/02/25 09:30 04/02/25 09:35 Temperature 97.8 F Pulse Rate 66 71 65 Pulse Rate [Right Pulse Oximeter] Respiratory Rate 20 20 20 Blood Pressure 125/79 132/78 132/76 Blood Pressure [Le ft Arm] Pulse Oximetry 94 96 97 Oxygen Delivery Me thod Room Air OxyMask OxyMask Oxygen Flow Rate 5 5 04/02/25 09:40 04/02/25 09:47 04/02/25 13:28 Temperature 97.2 F L Pulse Rate 54 L 52 L 71 Pulse Rate [Right Pulse Oximeter] Respiratory Rate 20 16 12 Blood Pressure 133/79 125/69 127/71 Blood Pressure [Le ft Arm] Pulse Oximetry 99 98 93 Oxygen Delivery Me thod OxyMask OxyMask Room Air OxyMask Oxygen Flow Rate 5 5 04/02/25 13:35 04/02/25 13:40 04/02/25 13:45 Temperature 97.3 F L Pulse Rate 71 68 67 Pulse Rate [Right Pulse Oximeter] Respiratory Rate 14 14 12 Blood Pressure 120/69 129/69 133/71 Blood Pressure [Le ft Arm] Pulse Oximetry 99 100 100 Oxygen Delivery Me thod OxyMask OxyMask OxyMask Oxygen Flow Rate 10 10 6 04/02/25 13:50 04/02/25 13:55 04/02/25 14:00 Temperature 97.3 F L Pulse Rate 69 68 69 Pulse Rate [Right Pulse Oximeter] Respiratory Rate 16 16 14 Blood Pressure 133/76 142/80 H 135/79 Blood Pressure [Le ft Arm] Pulse Oximetry 99 97 96 Oxygen Delivery Me thod Room Air Room Air Room Air Oxygen Flow Rate 04/02/25 14:06 04/02/25 14:10 04/02/25 14:25 Temperature 96.0 F L 96.1 F L 96.1 F L Pulse Rate Pulse Rate [Right Pulse Oximeter] 66 66 66 Respiratory Rate 16 16 16 Blood Pressure Blood Pressure [Le ft Arm] 144/86 H 146/83 H 144/82 H Pulse Oximetry 95 96 97 Oxygen Delivery Me thod Room Air Room Air Room Air Oxygen Flow Rate 04/02/25 14:40 04/02/25 14:55 04/02/25 15:00 Temperature 96.2 F L 96.3 F L Pulse Rate Pulse Rate [Right Pulse Oximeter] 62 65 Respiratory Rate 16 16 16 Blood Pressure Blood Pressure [Le ft Arm] 133/87 132/83 Pulse Oximetry 99 96 98 Oxygen Delivery Me thod Room Air Room Air Room Air Oxygen Flow Rate 04/02/25 15:00 04/02/25 16:00 04/02/25 17:00 Temperature 96.1 F L 96.5 F L Pulse Rate Pulse Rate [Right Pulse Oximeter] 55 L 60 Respiratory Rate 16 16 16 Blood Pressure Blood Pressure [Le ft Arm] 155/68 H 134/87 Pulse Oximetry 99 96 Oxygen Delivery Me thod Room Air Room Air Oxygen Flow Rate Assessment and Plan Assessment and plan (1) History of total right hip replacement: Problem comment: - R ROYER, Dr. Herrera, 04/02/25 Status: Acute (2) Hypothyroidism: Status: Acute (3) Essential hypertension: Status: Acute Plan - pain management and prophylaxis per orthopedic surgery team - continue home medications for comorbidities - anticipate routine postoperative course
[2025-04-02] MEDS: CEFAZOLIN 2 GM in 0.9 % SODIUM CHLORIDE Mini-bag 100 ML IVPB (17:17)
--- NOTE | 2025-04-02 19:35 | PC.NURSE ---
End of Shift: Patient pleasant and cooperative, A&O. VSS, afebrile. This afternoon, patient felt like he was unable to completely empty his bladder, bladder scanned, and straight cathed. Patient reports pain in his right shift this shift, managed with PRN medication, see MAR. Tolerating regular diet. 1A with walker and gait belt. ?
[2025-04-02] MEDS: SENNOSIDES 1 TAB TABLET 2 TAB PO (20:40)
[2025-04-03] MEDS: CEFAZOLIN 2 GM in 0.9 % SODIUM CHLORIDE Mini-bag 100 ML IVPB (01:59)
[2025-04-03 03:02] VITALS: BP 129/65; PULSE 67; RESP 14; TEMP 36.8; O2SAT 95
[2025-04-03] MEDS: ACETAMINOPHEN 500 MG TABLET 1000 MG PO ×2 (04:30→10:47)
[2025-04-03] MEDS: LEVOTHYROXINE 50 MCG TABLET PO (06:34)
[2025-04-03 07:00] VITALS: BP 130/69; PULSE 78; RESP 16; TEMP 37.1; O2SAT 98
--- NOTE | 2025-04-03 07:03 | PC.NURSE ---
End of shift: Pt pleasant, alert and oriented. VSS.?Pain rated 4-6/10 throughout shift, prn provided. Pt urinating appropriately. Dressing C/D/I. Ice pack to op site. Moves via 1a, tolerates well. Pt in bed, appears to be resting, call light within reach.?
--- NOTE | 2025-04-03 08:01 | PM.ORPN ---
Subjective Subjective Time Seen by Provider: 07:20 Date Seen: 04/03/25 Principal diagnosis: Status post right total hip arthroplasty Interval history: Acosta is comfortable. He is now voiding well. He plans to discharge to home today. Ortho Exam Narrative Exam Narrative: Alert and oriented x3. Patient is in no acute distress. Converses without labored breathing. Hearing is grossly intact. Ambulates with a walker. Examination of the right hip shows small area of ecchymosis is present. Mild soft tissue edema about the hip and thigh. Calves are soft and nontender. CMS is intact right lower extremity. Dressing is intact. No warmth or erythema or sign of infection Const Vital Signs, click to edit/add: Vital Signs - 24 hr 04/02/25 09:19 04/02/25 09:30 04/02/25 09:35 Temperature 97.8 F Pulse Rate 66 71 65 Pulse Rate [Right Pulse Oximeter] Respiratory Rate 20 20 20 Blood Pressure 125/79 132/78 132/76 Blood Pressure [Left Arm] Pulse Oximetry 94 96 97 Oxygen Delivery Method Room Air OxyMask OxyMask Oxygen Flow Rate 5 5 04/02/25 09:40 04/02/25 09:47 04/02/25 13:28 Temperature 97.2 F L Pulse Rate 54 L 52 L 71 Pulse Rate [Right Pulse Oximeter] Respiratory Rate 20 16 12 Blood Pressure 133/79 125/69 127/71 Blood Pressure [Left Arm] Pulse Oximetry 99 98 93 Oxygen Delivery Method OxyMask OxyMask Room Air OxyMask Oxygen Flow Rate 5 5 04/02/25 13:35 04/02/25 13:40 04/02/25 13:45 Temperature 97.3 F L Pulse Rate 71 68 67 Pulse Rate [Right Pulse Oximeter] Respiratory Rate 14 14 12 Blood Pressure 120/69 129/69 133/71 Blood Pressure [Left Arm] Pulse Oximetry 99 100 100 Oxygen Delivery Method OxyMask OxyMask OxyMask Oxygen Flow Rate 10 10 6 04/02/25 13:50 04/02/25 13:55 04/02/25 14:00 Temperature 97.3 F L Pulse Rate 69 68 69 Pulse Rate [Right Pulse Oximeter] Respiratory Rate 16 16 14 Blood Pressure 133/76 142/80 H 135/79 Blood Pressure [Left Arm] Pulse Oximetry 99 97 96 Oxygen Delivery Method Room Air Room Air Room Air Oxygen Flow Rate 04/02/25 14:06 04/02/25 14:10 04/02/25 14:25 Temperature 96.0 F L 96.1 F L 96.1 F L Pulse Rate Pulse Rate [Right Pulse Oximeter] 66 66 66 Respiratory Rate 16 16 16 Blood Pressure Blood Pressure [Left Arm] 144/86 H 146/83 H 144/82 H Pulse Oximetry 95 96 97 Oxygen Delivery Method Room Air Room Air Room Air Oxygen Flow Rate 04/02/25 14:40 04/02/25 14:55 04/02/25 15:00 Temperature 96.2 F L 96.3 F L Pulse Rate Pulse Rate [Right Pulse Oximeter] 62 65 Respiratory Rate 16 16 16 Blood Pressure Blood Pressure [Left Arm] 133/87 132/83 Pulse Oximetry 99 96 98 Oxygen Delivery Method Room Air Room Air Room Air Oxygen Flow Rate 04/02/25 15:00 04/02/25 16:00 04/02/25 17:00 Temperature 96.1 F L 96.5 F L Pulse Rate Pulse Rate [Right Pulse Oximeter] 55 L 60 Respiratory Rate 16 16 16 Blood Pressure Blood Pressure [Left Arm] 155/68 H 134/87 Pulse Oximetry 99 96 Oxygen Delivery Method Room Air Room Air Oxygen Flow Rate 04/02/25 17:51 04/02/25 19:30 04/02/25 20:35 Temperature 96.2 F L 98.3 F 98.2 F Pulse Rate Pulse Rate [Right Pulse Oximeter] 60 70 77 Respiratory Rate 16 16 16 Blood Pressure Blood Pressure [Left Arm] 134/87 129/68 122/68 Pulse Oximetry 96 96 97 Oxygen Delivery Method Room Air Room Air Room Air Oxygen Flow Rate 04/02/25 23:00 04/02/25 23:00 04/02/25 23:48 Temperature 98.1 F Pulse Rate Pulse Rate [Right Pulse Oximeter] 77 77 Respiratory Rate 16 16 Blood Pressure Blood Pressure [Left Arm] 132/69 Pulse Oximetry 95 96 Oxygen Delivery Method Room Air Room Air Oxygen Flow Rate 04/03/25 03:02 04/03/25 07:00 Temperature 98.3 F 98.8 F Pulse Rate Pulse Rate [Right Pulse Oximeter] 67 78 Respiratory Rate 14 16 Blood Pressure Blood Pressure [Left Arm] 129/65 130/69 Pulse Oximetry 95 98 Oxygen Delivery Method Room Air Room Air Oxygen Flow Rate Assessment and Plan Assessment and plan (1) History of total right hip replacement: Problem details: - R ROYER, Dr. Herrera, 04/02/25 Status: Acute Assessment and Plan: Plan for discharge is today, and when they meets discharge criteria. DVT prophylaxis upon discharge includes Xarelto 10mg daily for a total of 5 days, then Aspirin 81mg twice daily for 30 days. Remove dressing 1 week. Observe wound and phone Orthopedics with any questions or concerns Use Ice on operative hip unrestricted. Return to clinic in 1-2 weeks for a wound check as scheduled or sooner if needed Return to clinic in 6 weeks with surgeon Minimize narcotic use. Wean off and discontinue soon as possible. Activities as tolerated. No strenuous activity. Attend outpt PT
[2025-04-03] MEDS: RIVAROXABAN 10 MG TABLET PO (08:43)
[2025-04-03] MEDS: TAMSULOSIN HCL 0.4 MG CAPSULE 0.8 MG PO (08:43)
[2025-04-03] MEDS: SENNOSIDES 1 TAB TABLET 2 TAB PO (08:43)
[2025-04-03] MEDS: METOPROLOL SUCCINATE (XL) 50 MG TAB PO (08:43)
[2025-04-03 10:52] VITALS: BP 116/54; PULSE 72; RESP 16; TEMP 36.9; O2SAT 97
== END 2025-04-03 12:23 | disposition home or self-care (01) ==
LOC: OR 08:12 → MEDSURG 08:13
PROVIDERS: PCP Family Medicine; Visit Provider Orthopaedic Surgery
PROC: (CPT 27130; principal; 2025-04-02 10:45)
DX: M16.11 Unilateral primary osteoarthritis, right hip (principal); G89.18 Other acute postprocedural pain; I10 Essential (primary) hypertension; E03.9 Hypothyroidism, unspecified; Z79.82 Long term (current) use of aspirin; Z79.01 Long term (current) use of anticoagulants
CPT/HCPCS: 27130; 01210; 01214; 36415; 51702; 51798; 64450; 73501; 76000; 76942; 86850; 86900; 86901; 97110; 97116; 97161; 97165; 97530; 97535; A9270; C1776; J0330; J0690; J1100; J1171; J2250; J2405; J2704; J2795; J3010; J3475; J3490; J7120

== ENCOUNTER 2025-05-02 09:12 | Outpatient (CLI) | payer OTHER, SELFPAY ==
--- NOTE | 2025-05-02 10:55 | P.ANES_ITS ---
Anesthesia Charges Start Date/Time Anesthesia Start Date: 05/02/25 Anesthesia Start Time: 10:31 Stop Date/Time Anesthesia Stop Date: 05/02/25 Anesthesia Stop Time: 10:54 Coding CPT Codes CPT Codes: ANES LWR INTST NDSC NOS - 59328 ([id number]) P3 - PATIENT W/SEVERE SYS DISEASE, QK - WATER LEAK REPAIRER 2-4 CNCRNT ANES PROC, QX - KEYMODULE ASSEMBLY MACHINE TENDER SVC W/ MD MED DIRECTION
--- NOTE | 2025-05-02 10:55 | W.ANESCHARGE ---
Anesthesia Charges Start Date/Time Anesthesia Start Date: 05/02/25 Anesthesia Start Time: 10:31 Stop Date/Time Anesthesia Stop Date: 05/02/25 Anesthesia Stop Time: 10:54 Coding CPT Codes CPT Codes: ANES LWR INTST NDSC NOS - 59922 ([id number]) P3 - PATIENT W/SEVERE SYS DISEASE, QK - DISTRIBUTION CENTER SUPERVISOR 2-4 CNCRNT ANES PROC, QX - FIRE REGULATOR SVC W/ MD MED DIRECTION
--- NOTE | 2025-05-02 12:41 | P.ANES_ITS ---
Anesthesia Charges Start Date/Time Anesthesia Start Date: 05/02/25 Anesthesia Start Time: 10:31 Stop Date/Time Anesthesia Stop Date: 05/02/25 Anesthesia Stop Time: 10:54 Coding CPT Codes CPT Codes: ANES LWR INTST NDSC NOS - 64361 ([id number]) QK - KNITTED CLOTH EXAMINER 2-4 CNCRNT ANES PROC, QX - PTA SVC W/ MED DIRECTION, P3 - PATIENT W/SEVERE SYS DISEASE
--- NOTE | 2025-05-02 12:41 | W.ANESCHARGE ---
Anesthesia Charges Start Date/Time Anesthesia Start Date: 05/02/25 Anesthesia Start Time: 10:31 Stop Date/Time Anesthesia Stop Date: 05/02/25 Anesthesia Stop Time: 10:54 Coding CPT Codes CPT Codes: ANES LWR INTST NDSC NOS - 73570 ([id number]) QK - BRANCH RENTAL MANAGER 2-4 CNCRNT ANES PROC, QX - BOTTOM STOP ATTACHER SVC W/ MED DIRECTION, P3 - PATIENT W/SEVERE SYS DISEASE
== END 2025-05-02 09:13 | disposition home or self-care (01) ==
LOC: OP CLINIC 09:13
PROVIDERS: PCP Family Medicine; Visit Provider Surgery
DX: Z12.11 Encounter for screening for malignant neoplasm of colon (principal); D12.7 Benign neoplasm of rectosigmoid junction; K57.30 Diverticulosis of large intestine without perforation or abscess without bleeding
CPT/HCPCS: 00811; 00812; 45380; J2704